=== PATIENT | female | born 1990 | race Caucasian/White ===

== ENCOUNTER 2018-01-08 11:53 | Observation (INO) ==
[2018-01-08 13:50] LABS: BILIRUBIN,URINE NEGATIVE (NEG); CLARITY,URINE CLEAR (CLEAR); COLOR,URINE YELLOW; GLUCOSE, URINE (UA) NEGATIVE (NEG); OCCULT BLOOD,URINE NEGATIVE (NEG); PH,URINE 6.5 (5.0-8.5); PROTEIN,URINE NEGATIVE (NEG); URINE SAMPLE TYPE CLEAN CATCH URINE; UROBILINOGEN,URINE 0.2 mg/dL (0.2)
[2018-01-08 13:55] LABS: BACTERIA,URINE MODERATE; SQUAMOUS EPITHELIAL CELL,UR MANY
[2018-01-08] MEDS ORDERED: NIFEdipine 10 MG CAPSULE PO ONE ×2 (14:22→18:30)
[2018-01-08] MEDS ORDERED: BETAMET ACET/BETAMET NA PH 6 MG/1 ML - 5 ML IM SCH (14:30)
--- NOTE | 2018-01-08 15:01 | DI ---
US OB , Limited,01/08/2018 1:53 PM: Clinical History: Gestational diabetes. Evaluate amniotic fluid index and growth. Previous Exam: October 16, 2017 Findings: Multiple grayscale and color Doppler sonographic images are obtained through the pelvis, and demonstr ate a single live intrauterine gestation. The cervix is long and closed. Amniotic fluid index measured 16.0 cm. Estimated gestational age was determined by a composite of biparietal diameter, head circumference, a bdominal circumference and femur length yielding an estimated gestational age by ultrasound of 33 wee ks zero days. Estimated weight is 2034 g (22nd percentile). Impression: Single live intrauterine gestation with size equal to dates.
[2018-01-08] MEDS ORDERED: Lactated Ringers-OB Dept 1,000 ML ONE (19:13)
[2018-01-08] MEDS ORDERED: CALCIUM GLUCONATE 100 MG/1 ML - 10 ML IVP PRN (19:23)
[2018-01-08] MEDS ORDERED: Magnesium Sulfate 4gm (Premix) 4 GM/100 ML BAG IV ONE ×2 (19:23→19:29)
[2018-01-08] MEDS ORDERED: MAGNESIUM SULFATE IV ONE ×2 (19:29→19:33)
[2018-01-08] MEDS ORDERED: Magnesium Sulfate (Premix) 20 GM/500 ML BAG IV SCH (19:30)
[2018-01-08] MEDS ORDERED: LIDOCAINE W/ SODIUM BICARB 0.5 ML SYR SUBD PRN (19:44)
[2018-01-08] MEDS ORDERED: LIDOCAINE HCL 2 % 10 ML JELLY URO-JECT TOPICAL PRN (19:44)
[2018-01-08] MEDS ORDERED: ONDANSETRON 4 MG/2 ML VIAL IVP PRN (19:44)
[2018-01-08] MEDS ORDERED: Sodium Chloride 0.9% 1,000 ML PRIMARY IV SCH (19:45)
--- NOTE | 2018-01-08 20:02 | OB.PROGRES ---
Date of Service: 01/08/18 Time of Service: 19:15 Interval History: Mrs. Avitia is a 27 yo at 33 3/7 weeks by early u/s who presented to labor and delivery today for her routine antepartum testing secondary to a diagnosis of gestational diabetes. She was noted to be jay regularly every 2-3 minutes. NST was reactive. Pt was feeling occasional tightening, but not really pain at that time. She went and had her normal u/s for THERESA and growth and then returned to the floor. She continued to have contractions despite 1,500 cc po intake of water. An FFN and vaginosis panel was collected, as was a urinalysis. Her cervix was fingertip/thick/-3. The FFN was positive, the vaginosis panel was negative. UA was contaminated but with only 2-4 WBC. After the FFN returned as positive, she was given 12 mg of celestone and 1 dose of 20 mg of procardia. After 2 hours, the pt was still jay every 2-3 minutes. Her cervix was rechecked and her outer os was 3 cm, inner os was 1 and a wiggle/60%/-3. Because of the continued regular contractions as well as cervical change, consultation with [facility] in [place] was obtained. I spoke with Dr. Taniya Tan, who recommend transfer. The pt's has been essentially uncomplicated, with the exception of her diagnosis of gestational diabetes. She has been managing thus far with her diet. She has met with the policy change clerk and has been consistent with checking her blood sugars. She did also have some first trimester spotting, which resolved spontaneously. There was no evidence of bleeding on the u/s which was done at the time. 20 week u/s was unremarkable. Objective - Cervical Exam Cervical Exam: 3 outer os, 1 and a wiggle inner os/60%/-3 station. Soft. [place]: every 2-3 minutes, palpating mild. Heart Rate: 140s, moderate variability, category 1 tracing. - Vital Signs Last Taken Vital Signs: Vital Signs - Last Taken Temperature 98.1 F 01/08/18 16:15 Pulse Rate 76 01/08/18 16:15 Respiratory Rate 18 01/08/18 16:15 Blood Pressure 128/65 01/08/18 16:15 Pulse Ox 100 01/08/18 16:15 Assessment and Plan - Patient Problems (1) labor in third trimester Current Visit: Yes Status: Acute Code(s): O60.03 - labor without delivery, third trimester Qualifiers: Fetus number: single or unspecified fetus (2) Gestational diabetes Current Visit: Yes Status: Acute Code(s): O24.419 - Gestational diabetes mellitus in , unspecified control Qualifiers: Gestational diabetes mellitus control: diet-controlled Trimester: third trimester Qualified Code(s): O24.410 - Gestational diabetes mellitus in , diet controlled - Assessment / Plan Additional Assessment/Plan Details: - labor with regular contractions and cervical change. -given 1 dose of procardia at 1525 and another dose of 10 mg at 1815. -FFN +, given celestone at 1530. -GBS collected and pending. -u/s today showing THERESA of 16.0 with EFW at the 22nd percentile. Vertex presentation. -pt has received a magnesium sulfate bolus of 4 gm/hr followed by 2 gm/hour maintenance. -plan transfer to [facility] in [place] for MFM and possible NICU services if needed. -the plan was discussed with the pt and her in detail, all questions were answered.
[2018-01-08] MEDS ORDERED: Sodium Chloride 0.9% 50 ML ONE (21:59)
[2018-01-08] MEDS ORDERED: PENICILLIN G POTASSIUM 5,000,000 UNIT SDV IV ONE (21:59)
[2018-01-08 22:43] VITALS: TEMP 98.2
[2018-01-08 22:55] VITALS: BP 116/81; RESP 18; O2SAT 99
[2018-01-09] MEDS ORDERED: Prenatal Multivitamin Tab 1 TAB TAB PO SCH (09:00)
== END 2018-01-08 22:10 | disposition short-term general hospital (02) ==
LOC: OBIP 11:53 → US 11:53
PROVIDERS: ADMIT Family Medicine; ATTEND Family Medicine